=== PATIENT | male | born 1945 | race Caucasian/White ===

== ENCOUNTER → 2016-12-24 | Outpatient (CLI) | payer OTHER, MEDICARE | LOC: BMCIMAGING 16:41 | PROVIDERS: ATTEND Nurse Practitioner Adult Health | DX: R91.8 Other nonspecific abnormal finding of lung field (principal); I25.10 Atherosclerotic heart disease of native coronary artery without angina pectoris ==

== ENCOUNTER → 2017-01-06 | Outpatient (CLI) | payer OTHER, MEDICARE | LOC: BMCIMAGING 10:30 | PROVIDERS: ATTEND Nurse Practitioner Adult Health | DX: R05 Cough (principal) ==

== ENCOUNTER → 2017-01-22 | Outpatient (CLI) | payer OTHER, MEDICARE ==
[~2017-01-22] MED LIST: IOPAMIDOL (ISOVUE-300) 100 ML BTL IV ONE
[2017-01-22 08:19] LABS: CREATININE 0.9 mg/dL (0.7-1.3); GLOMERULAR FILTRATION RATE > 60
[2017-01-22 09:59] LABS: HEMOGLOBIN A1C 7.4 % (4.0-6.0)
== END ==
LOC: FIMAGING 07:39
PROVIDERS: ATTEND Nurse Practitioner Adult Health
DX: R05 Cough (principal); R91.8 Other nonspecific abnormal finding of lung field
CPT/HCPCS: 71260; Q9967

== ENCOUNTER → 2017-10-14 | Outpatient (CLI) | payer OTHER, MEDICARE | LOC: BMCIMAGING 16:56 | PROVIDERS: ATTEND Internal Medicine | DX: M25.561 Pain in right knee (principal); I70.291 Other atherosclerosis of native arteries of extremities, right leg ==

== ENCOUNTER → 2017-10-16 | Outpatient (CLI) | payer OTHER, MEDICARE | LOC: FIMAGING 07:37 | PROVIDERS: ATTEND Internal Medicine | DX: M25.561 Pain in right knee (principal) ==

== ENCOUNTER → 2018-10-15 | Outpatient (CLI) | payer OTHER, MEDICARE | LOC: BMCIMAGING 12:17 | PROVIDERS: ATTEND Internal Medicine Rheumatology | DX: M43.6 Torticollis (principal) ==

== ENCOUNTER → 2018-12-02 | Outpatient (CLI) | payer OTHER, MEDICARE | LOC: BHFA 09:00 | PROVIDERS: ATTEND Internal Medicine Cardiovascular Disease | DX: I25.10 Atherosclerotic heart disease of native coronary artery without angina pectoris (principal) | CPT/HCPCS: 78452; 93017; A9500 ==